=== PATIENT | male | born 1940 | race African-American/Black ===

== ENCOUNTER → 2017-05-28 | Outpatient (CLI) | payer MEDICARE, OTHER | END | disposition home or self-care (01) | LOC: MRI 12:18 | PROVIDERS: ATTEND Internal Medicine Gastroenterology | DX: N28.1 Cyst of kidney, acquired (principal); K76.89 Other specified diseases of liver; N40.0 Benign prostatic hyperplasia without lower urinary tract symptoms | CPT/HCPCS: 72195; 74181 ==